=== PATIENT | male | born 1950 | race Caucasian/White ===

== ENCOUNTER → 2020-05-20 | Outpatient (CLI) | payer MEDICARE, OTHER ==
[2020-05-07 11:00] VITALS: BP 108/88
[~2020-05-20] MED LIST: AMLO-187 PO; ASPI-630 PO; ATOR40TA59 PO; FAMO-63 PO; INSU100C4 SQ; INSU100I32 SQ; LISI-130 PO; METF10007 PO; METO50TA4 PO; TAMS0.4C97 PO
--- NOTE | 2020-05-20 11:20 | KCIC ---
MRI ABDOMEN W/O CONTRAST: MRCP Clinical Indication: Reason: CHRONIC PANCREATITIS / Spl. Instructions: KNOWN RENAL IMPAIREMENT / Hist ory: Lt kidney CA 2011. Recurrent pancreatitis. Comparison: CT abdomen and pelvis with contrast, May 03, 2020. Technique: Multiplanar multiple pulse sequence imaging of the abdomen was performed, including T2 thi n slab images through the biliary tree, without contrast. 3-D volume rendering images constructed to better evaluate the biliary tree anatomy. Findings: No abnormal diffusion-weighted signal is identified. There is no fatty infiltration of the liver. There is a 1.6 cm cyst in segment 2 of the liver. The adrenal glands are normal. The spleen is small in size. The gallbladder is normal. The biliary tr ee is normal caliber. The distal extrahepatic duct is not well seen, perhaps due to edema of the panc reas head. There is a 1.9 cm cyst in the upper pole of the right kidney that does not require follow-up. There a re smaller bilateral renal cysts that do not require follow-up. There is bilateral perinephric strand ing, nonspecific. Signal change at the upper pole of the left kidney may be sequela of therapy. There is low T1 signal and intermediate T2 signal. The pancreatic duct is normal caliber. No pancreas pseudocyst is identified. The peripancreatic infla mmatory changes and fluid are still present but improved from prior study. Fluid in the central mesen mike is probably mildly less but appears more loosely organized than on prior CT, for example coronal image 34, axial T2 image 22. IMPRESSION: 1. Fluid in the central mesentery appears more loosely organized with a thick-walled rim. Developing pseudocyst or abscess cannot be excluded. Recommend repeat CT. 2. Peripancreatic inflammatory changes and fluid are still present but improved. 3. The biliary tree is normal caliber. The distal extrahepatic duct is not well seen. 4. Signal change at the upper pole of the left kidney is probably sequela of therapy. Electronically signed by: Moshe Simms MD (05/20/2020 11:17 AM) [id number]
== END ==
LOC: KCIC MRI 08:04
PROVIDERS: ATTEND Internal Medicine Gastroenterology
DX: K86.1 Other chronic pancreatitis (principal)
CPT/HCPCS: 74181